=== PATIENT | female | born 1960 | race Caucasian/White ===

== ENCOUNTER → 2019-04-05 15:50 | Outpatient (BNVA) | payer OTHER, SELFPAY | PROVIDERS: Family Provider Family Medicine; Referring Provider Nurse Practitioner Women's Health; Visit Provider Obstetrics & Gynecology | DX: Z01.89 Encounter for other specified special examinations (principal) | CPT/HCPCS: 36415; 82306 ==

== ENCOUNTER → 2019-06-06 16:19 | Outpatient (BNVA) | payer OTHER, SELFPAY | PROVIDERS: Family Provider Family Medicine; Referring Provider Nurse Practitioner Women's Health; Visit Provider Nurse Practitioner Women's Health | DX: R79.89 Other specified abnormal findings of blood chemistry (principal) | CPT/HCPCS: 82306 ==

== ENCOUNTER 2020-06-05 16:09 | Outpatient (CLI) | payer OTHER, SELFPAY ==
--- NOTE | 2020-06-05 16:17 | CT_ITS ---
WS: [id number] CT CHEST WITHOUT INTRAVENOUS CONTRAST HISTORY: COUGH TECHNIQUE: Contiguous 5 mm axial imaging performed on the thorax. Coronal and sagittal reformats are submitted. All CT scans at [facility] use at least one of these dose optimization techniq ues: automated exposure control; mA and/or kV adjustment per patient size (includes targeted exams wh ere dose is matched to clinical indication); or iterative reconstruction. CONTRAST: None DLP: 917.09 mGycm COMPARISON: 07/14/2018 Lungs and central airway: Lungs are well-aerated. There is mild interstitial thickening bilaterally w ithin the periphery. Very similar to the prior examination from 2019. Stable 3 mm nodule in the LEFT upper lobe. No new nodules or increasing size of nodules. Pleura: Normal. No pleural effusion. Heart and pericardium: Normal size heart with no pericardial effusion. Mediastinum and ana: No mediastinum or hilar adenopathy. Vessels: Normal size aortic and pulmonary artery. No coronary artery calcifications. Chest wall and lower neck: No soft tissue masses. Upper abdomen: Prior cholecystectomy. No adrenal mass. Osseous structures: No destructive process. CT/CT chest wo con [id number] IMPRESSION: 1. Mild peripheral interstitial thickening. Differential includes mild pneumon itis and respiratory bronchiolitis. Chronic emphysema also within the different ial. No pneumonia. 2. Long-term stability 3 mm nodule LEFT upper lobe.
== END 2020-06-05 16:10 | disposition home or self-care (01) ==
LOC: RADWPI 16:13
PROVIDERS: PCP Family Medicine; Visit Provider Physician Assistant
DX: R05 Cough (principal); J18.9 Pneumonia, unspecified organism; R91.1 Solitary pulmonary nodule
CPT/HCPCS: 71250

== ENCOUNTER 2020-08-09 15:14 | Outpatient (CLI) | payer OTHER, SELFPAY ==
--- NOTE | 2020-08-09 15:18 | MM_ITS ---
WS: [id number] BILATERAL SCREENING DIGITAL MAMMOGRAM WITH CAD HISTORY: SCREENING COMPARISON: 02/21/2019 and 11/04/2016 Bilateral CC and MLO views submitted. Computer aided detection analyzed. Breast composition: The breasts are heterogeneously dense, which may obscure small masses. No suspici ous masses, microcalcifications or architectural distortion. Benign calcifications in each breast. MM/[place] [id number] IMPRESSION: BI-RADS: 2-Benign FOLLOW UP: 1 Year Follow-up
== END 2020-08-09 15:15 | disposition home or self-care (01) ==
LOC: RADSHAW 15:16
PROVIDERS: PCP Family Medicine; Visit Provider Family Medicine
DX: Z12.31 Encounter for screening mammogram for malignant neoplasm of breast (principal)
CPT/HCPCS: 77067

== ENCOUNTER 2020-11-15 08:20 | Outpatient (CLI) | payer OTHER, SELFPAY ==
--- NOTE | 2020-11-15 08:34 | US_ITS ---
WS: [id number] THYROID ULTRASOUND HISTORY: HX OF THYROID CANCER/POSTSURGICAL HYPOTHYROIDISM COMPARISON: 11/19/2012. Status post complete thyroidectomy. No recurrent mass at the thyroid bed. Submandibular glands are both imaged and normal. Benign bilateral cervical chain lymph nodes. These lymph nodes maintain normal fatty hilum. No cortic al thickening. Central vascularity. US/US thyroid 79426 IMPRESSION: 1. Complete thyroidectomy. No recurrent mass at the thyroid bed. 2. Benign bilateral cervical chain lymph nodes.
== END 2020-11-15 08:21 | disposition home or self-care (01) ==
LOC: RAD 08:23
PROVIDERS: PCP Family Medicine; Visit Provider Internal Medicine Endocrinology, Diabetes & Metabolism
DX: Z85.850 Personal history of malignant neoplasm of thyroid (principal); E89.0 Postprocedural hypothyroidism
CPT/HCPCS: 76536

== ENCOUNTER 2020-12-17 12:00 | Outpatient (CLI) | payer OTHER, SELFPAY | END 2020-12-17 12:01 | disposition home or self-care (01) | LOC: SLEEP 12-19 08:32 | PROVIDERS: PCP Family Medicine; Visit Provider Family Medicine | DX: G47.10 Hypersomnia, unspecified (principal) | CPT/HCPCS: G0399 ==

== ENCOUNTER 2021-04-05 12:57 | Outpatient (CLI) | payer OTHER, SELFPAY ==
[2021-04-05 13:34] VITALS: BP 134/86; PULSE 83; RESP 22; TEMP 36.8; O2SAT 94; BMI 30.2
[2021-04-05 13:50] VITALS: BP 129/78; PULSE 78; RESP 16; TEMP 36.8; O2SAT 93
[2021-04-05 14:49] VITALS: BP 157/81; PULSE 82; RESP 18; TEMP 36.7; O2SAT 94
== END 2021-04-05 12:58 | disposition home or self-care (01) ==
PROVIDERS: PCP Family Medicine; Visit Provider Nurse Practitioner
DX: U07.1 COVID-19 (principal)
CPT/HCPCS: 96365

== ENCOUNTER 2021-06-20 15:38 | Outpatient (CLI) | payer OTHER, SELFPAY ==
--- NOTE | 2021-06-20 16:25 | XR_ITS ---
WS: [email or web address] Cervical spine, 7 views, AP, AP odontoid, both obliques, lateral in flexion, extension and neutral po sition, 06/20/2021 Clinical Data: CERVICAL RADICULOPATHY Comparison: None. Findings: No compression fractures are seen. The disc heights are normal. There is no prevertebral so ft tissue swelling. The odontoid is unremarkable. On flexion and extension there is no limitation of motion or subluxation. The oblique films show no foraminal narrowing. The soft tissues of the neck an d the lung apices are normal. XR/XR cervical spine min 6V [id number] Impression: 1. Negative cervical spine. 2. Negative oblique images. 3. Negative for limitation of motion or subluxation on flexion or extension.
== END 2021-06-20 15:39 | disposition home or self-care (01) ==
PROVIDERS: PCP Family Medicine; Visit Provider Family Medicine
DX: M54.12 Radiculopathy, cervical region (principal)
CPT/HCPCS: 72052

== ENCOUNTER 2021-08-09 08:28 | Outpatient (CLI) | payer OTHER, SELFPAY ==
--- NOTE | 2021-08-09 08:45 | MR_ITS ---
WS: [id number] MRI CERVICAL SPINE NONCONTRAST AND CONTRAST TECHNIQUE: Sagittal T1, T2 and STIR imaging. Axial T2, gradient, and fiesta imaging. CLINICAL INFORMATION: M47.22 - Other spondylosis with radiculopathy, cervical r... COMPARISON: None. FINDINGS: Straightening of the normal cervical lordosis. Mild cervical curve. No high-grade central canal steno sis. Cord signal is normal. C2-C3: No significant disc bulging. Spinal canal and foramen are patent. C3-C4: Mild disc bulging with osteophytic ridging. Moderate LEFT and no significant RIGHT foraminal n arrowing. Mild facet arthropathy. Mild central canal stenosis. C4-C5: Mild disc bulging with a tiny shallow central protrusion. Mild central canal stenosis. Slight contact of the cervical cord. Mild RIGHT greater than LEFT bony foraminal narrowing. Moderate facet a rthropathy. C5-C6: Mild disc bulging and osteophytic ridging. Moderate facet arthropathy. Mild RIGHT greater than LEFT bony foraminal narrowing. C6-C7: Minimal central disc bulging. Spinal canal and foramen are patent. C7-T1: Incidental perineural cysts. Mild LEFT bony foraminal narrowing. RIGHT foramen is patent. Additional incidental perineural sleeve cysts in the upper thoracic spine are visualized. No abnormal gadolinium enhancement. Visualized brain stem structures: Normal. Prevertebral soft tissues: Normal. MR/MR cervical spine wo/w [id number] IMPRESSION: 1. Straightening of the normal cervical lordosis. Mild cervical curve. Cord si gnal is normal. 2. Mild central canal stenosis C3-C4, C4-C5,. This is worse at C4-C5 with a sh allow central disc protrusion with slight contact of the cervical cord. 3. Moderate LEFT C3-C4 bony foraminal narrowing. 4. Otherwise mild bony foraminal narrowing more prominent at RIGHT C4-C5 and R IGHT C5-C6. 5. Moderate facet arthropathy worse at C4-C5 and C5-C6. 6. Multiple nonenhancing perineural sleeve cysts visualized in the neural fora men at C7-T1 and upper thoracic spine. 7. No abnormal gadolinium enhancement.
[2021-08-09] MEDS: gadobenate dimeglumine 20 mL vial IV (09:54)
== END 2021-08-09 08:29 | disposition home or self-care (01) ==
PROVIDERS: PCP Family Medicine; Visit Provider Anesthesiology Pain Medicine
DX: M47.22 Other spondylosis with radiculopathy, cervical region (principal); M48.02 Spinal stenosis, cervical region; G96.191 Perineural cyst
CPT/HCPCS: 72156

== ENCOUNTER → 2022-06-16 16:13 | Outpatient (BNVA) | payer OTHER, SELFPAY | PROVIDERS: PCP Family Medicine; Visit Provider Family Medicine | DX: E03.9 Hypothyroidism, unspecified (principal); Z51.81 Encounter for therapeutic drug level monitoring; E53.8 Deficiency of other specified B group vitamins; K14.6 Glossodynia; Z85.850 Personal history of malignant neoplasm of thyroid; Z86.010 Personal history of colon polyps | CPT/HCPCS: 80053; 82607; 83550; 83735; 84439; 84443; 85025 ==

== ENCOUNTER 2022-09-17 06:29 | Day surgery (SDC) | payer OTHER, SELFPAY ==
[2022-09-16 08:52] VITALS: BMI 30.9
[2022-09-17 06:40] VITALS: BP 159/96; PULSE 84; RESP 17; TEMP 36.1; O2SAT 94
[2022-09-17] MEDS: sodium chloride 0.9% 1,000 ML 30 ML IV (06:46)
--- NOTE | 2022-09-17 06:53 | P.ANESASSM_ITS ---
Pre-Anesthetic Assessment Height/Weight: Height 1.69 m Weight 88.451 kg Temp Pulse Resp BP Pulse Ox O2 Del Method 97.0 F L 84 17 159/96 94 Room Air 09/17/22 06:40 09/17/22 06:40 09/17/22 06:40 09/17/22 06:40 09/17/22 06:40 09/17/22 06:40 Preop Diagnosis: screening Operation Date: 09/17/22 07:30 Pro[place] Procedures p 97691 egd 34516 colon K52.9 , K21.9,Z86.010(Not Applicable) - DO nanda Aragon Colonoscopy(Not Applicable) - Denis Dennis DO Familial anesthetic complications: none Was Beta Magda taken within 24 hours: Yes Was Clonidine taken within 24 hours: N/A Last intake: Intake Last Liquid Date 09/16/22 Last Liquid Time 23:15 Last Solid Date 09/15/22 Last Solid Time 21:00 Last Intake: 23:15 Social No alcohol and No tobacco Exam alert, oriented x 3, clear to auscultation bilaterally and regular rate & rhythm Airway Submandibular: within normal limits Cervical ROM: within normal limits Mallampati: Class II Dentition: full Pulmonary None reported CV/HEM Hypertension None reported Hepatic None reported GI Gastroesophageal Reflux Disease Metabolic Thyroid Disease (thyroidectomy) [facility] [place] None reported Neuropsych None reported Anesthetic Plan ASA status: 2 Anesthesia: MAC Risk of > 500 ml blood loss (7ml/kg in children): No Medications/Allergies Home Medications Medication Instructions Recorded Confirmed Last Taken Type calcium [calcium citrate] 2.5 cap PO DAILY 04/05/19 09/17/22 09/16/22 History cetirizine 10 mg capsule (Zyrtec) 10 mg PO DAILY 04/05/19 09/17/22 09/16/22 History metoprolol succinate 100 mg PO DAILY 04/05/19 09/17/22 09/17/22 History cholecalciferol (vitamin D3) 50 2,000 unit PO DAILY #30 tabs 06/10/19 09/17/22 09/16/22 Rx mcg (2,000 unit) tablet levothyroxine 125 mcg tablet 125 mcg PO DAILY 06/16/22 09/17/22 09/17/22 History hydrochlorothiazide 12.5 mg tablet 12.5 mg PO DAILY #90 tabs 06/23/22 09/17/22 09/16/22 Rx pantoprazole 40 mg tablet,delayed 40 mg PO BID 6 weeks #84 tabs 09/03/22 09/17/22 09/16/22 Rx release (Protonix) montelukast 10 mg tablet 10 mg PO DAILY PRN Shortness Of 09/16/22 09/17/22 Unknown History Breath sertraline 50 mg tablet 50 mg PO DAILY 09/17/22 09/17/22 09/16/22 History Allergies Allergy/AdvReac Type Severity Reaction Status Date / Time codeine Allergy Trouble Verified 09/17/22 06:37 breathing Current Medications Generic Name Dose Route Start Last Admin Trade Name Freq PRN Reason Stop Dose Admin Sodium Chloride 1,000 mls @ 30 mls/hr 09/17/22 06:45 09/17/22 06:46 Sodium Chloride 0.9% IV 09/18/22 06:44 30 mls/hr .Q24H STACIE Administration PFSH Anesthesia Medical History Colon polyp Environmental allergies Gallbladder attack Hypertension Post hysterectomy menopause Thyroid cancer Surgical History History of cholecystectomy History of hysterectomy Bilateral ovaries in place History of partial colectomy History of thyroidectomy Hx of colonoscopy with polypectomy 2020 Family History Father Cancer colon Other CAD (coronary artery disease) Diabetes Hypertension Social History Smoking and tobacco status: never smoked Data Anesthesia Cardiac Studies: No Data to Display
--- NOTE | 2022-09-17 07:41 | W.PM.OPSUD ---
Surgery/Procedure H&P Update DATE OF PROCEDURE: September 17, 2022 DATE H&P PERFORMED: 09/03/22 H&P UPDATE INFORMATION: I have reviewed H&P completed within last 30 days, I have examined patient prior to procedure and No changes to prior documentation PREOP DIAGNOSIS: screening PLANNED PROCEDURE: Operation Date: 09/17/22 07:30 Proposed Procedures p 00209 egd 22760 colon K52.9 , K21.9,Z86.010(Not Applicable) - DO nanda Aragon Colonoscopy(Not Applicable) - Denis Dennis DO
[2022-09-17 08:14] VITALS: BP 129/80; PULSE 81; RESP 16; TEMP 36.1; O2SAT 97
[2022-09-17 08:24] VITALS: BP 124/74; PULSE 70; RESP 16; O2SAT 94
[2022-09-17 08:40] VITALS: BP 151/89; PULSE 68; RESP 16; O2SAT 95
--- NOTE | 2022-09-17 14:02 | ANE.PACU2 ---
Inpatient post-anesthesia follow up: Airway intact: Yes Vital signs: Temperature 97 F Pulse Rate 68 Respiratory Rate 16 Blood Pressure 151/89 Pulse Oximetry 95 Oxygen Delivery Me thod Room Air Oxygen Flow Rate Fraction of Inspir ed Oxygen Hydration adequate: Yes Nausea and vomiting: No Pain level: 2 Mental status: Baseline
== END 2022-09-17 09:05 | disposition home or self-care (01) ==
PROVIDERS: PCP Family Medicine; Visit Provider Surgery
PROC: 0DJ08ZZ Inspection of Upper Intestinal Tract, Via Natural or Artificial Opening Endoscopic (ICD-10-PCS; CPT 43235; principal; 2022-09-17 07:30)
PROC: 0DJD8ZZ Inspection of Lower Intestinal Tract, Via Natural or Artificial Opening Endoscopic (ICD-10-PCS; CPT 45378; 2022-09-17 07:30)
DX: K52.9 Noninfective gastroenteritis and colitis, unspecified (principal); K29.70 Gastritis, unspecified, without bleeding; K31.811 Angiodysplasia of stomach and duodenum with bleeding; K21.9 Gastro-esophageal reflux disease without esophagitis; K31.89 Other diseases of stomach and duodenum; I10 Essential (primary) hypertension; E89.0 Postprocedural hypothyroidism; Z86.010 Personal history of colon polyps; Z80.0 Family history of malignant neoplasm of digestive organs; Z90.49 Acquired absence of other specified parts of digestive tract
CPT/HCPCS: 43239; 45380; 82274; 83630; 87493; 87506; 88305; J2704; J7030

== ENCOUNTER 2022-09-22 10:30 | Outpatient (CLI) | payer OTHER, SELFPAY ==
--- NOTE | 2022-09-22 10:35 | MM_ITS ---
WS: [email or web address] VIEWS: MLO and CC views both breasts. 3D digital tomosynthesis is also included in this exam. Comparison made with prior exam of 02/06/2012, 10/08/2015, 11/04/2016, 02/21/2019, 08/09/2020. Findings: There was no sign of mass, architectural distortion or suspicious calcification in either breast. Th e breasts are heterogeneously dense, which may obscure small masses MM/[place] [id number] Impression: BI-RADS: 2-Benign finding. FOLLOW-UP: 1 Year Follow-up This mammogram was also analyzed by the Computer Aided Detection System R2 Imag e Full Fashioned Garment Knitter.
== END 2022-09-22 10:31 | disposition home or self-care (01) ==
PROVIDERS: PCP Family Medicine; Visit Provider Family Medicine
DX: Z12.31 Encounter for screening mammogram for malignant neoplasm of breast (principal)
CPT/HCPCS: 77063; 77067

== ENCOUNTER → 2022-09-25 12:05 | Outpatient (BNVA) | payer OTHER, SELFPAY | PROVIDERS: PCP Family Medicine; Referring Provider Surgery; Visit Provider Nurse Practitioner Women's Health | DX: E55.9 Vitamin D deficiency, unspecified (principal); N89.8 Other specified noninflammatory disorders of vagina; Z01.419 Encounter for gynecological examination (general) (routine) without abnormal findings; N93.9 Abnormal uterine and vaginal bleeding, unspecified | CPT/HCPCS: 82306 ==

== ENCOUNTER 2023-01-22 08:41 | Emergency (ER) | payer OTHER, SELFPAY ==
[2023-01-22 08:50] VITALS: BP 183/96; PULSE 66; RESP 16; TEMP 36.8; O2SAT 95
--- NOTE | 2023-01-22 08:56 | ECG_ITS ---
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 Measurements Intervals [place] Rate: 63 P: 59 ME: 208 QRS: 24 QRSD: 115 T: 54 QT: 399 QTc: 410 Interpretive Statements SINUS RHYTHM MODERATE INTRAVENTRICULAR CONDUCTION DELAY [110+ ms QRS DURATION] No previous ECG available for comparison Electronically Signed On 01-22-2023 11:31:03 CDT by Mary Allen M.D. [email or web address] [email or web address]/[id number] f
--- NOTE | 2023-01-22 09:02 | XR_ITS ---
WS: [id number] Exam: XR chest 1V portable [id number] Date/Time of Exam: 01/22/2023 9:21 AM Reason For Exam: dyspnea/cough Comparison 07/01/2018. Findings: The lungs are clear and fully expanded. Costophrenic angles are sharp. No infiltrates. Bronchovascula r relief appears normal. Cardiac silhouette is unremarkable. Bony elements are intact. IMPRESSION: Unremarkable chest radiograph.
--- NOTE | 2023-01-22 09:16 | ED_ITS ---
HPI - SOB/Dyspnea General: Chief Complaint: Shortness of Breath/Dyspnea Stated Complaint: sob high bp Time Seen by Provider: 01/22/23 09:01 Source: patient Mode of arrival: ambulatory History of Present Illness: HPI Narrative: 62 yo male presents to the ER with complaints of shortness of breath and eleva khushbu blood pressure. She is not having any chest discomfort at this time. She has a history of thyroid cancer and is on thyroid supplement 4 to 6 weeks ago her Synthroid is increased after a low TSH she went from 124 mcg to 137 mcg. No known history of coronary artery disease. She had mild chest discomfort this morning MD elicited complaint: shortness of breath Onset (ago): hour(s) Severity: mild Exacerbating factors: nothing Relieving factors: nothing Associated symptoms: Deny abdominal pain, chest congestion, chest pain, cough, diaphoresis, dizziness, extremity pain, fever(s), hemoptysis, lightheadedness, myalgias, nausea, orthopnea, palpitations, paresthesias, polydipsia, polyuria, rash, sense of impending doom, syncope or vomiting Treatment prior to arrival: none Review of Systems Const: Denies: fever(s), chills or diaphoresis Card: Denies: chest pain, palpitations, lightheadedness, syncope or orthopnea Resp: Reports: dyspnea; Denies: hemoptysis or chest congestion GI: Denies: abdominal pain, nausea or vomiting : Denies: dysuria, urinary frequency or urinary urgency Musc: Denies: extremity pain Skin/Breast: Denies: rash Neuro: Denies: dizziness Endo: Denies: polyuria or polydipsia PFSH ED PFSH: Medical History Colon polyp Environmental allergies Gallbladder attack Hypertension No pertinent past medical history neghx: dm, dvt/pe PCP: Dr. Tran Post hysterectomy menopause Thyroid cancer Surgical History History of cholecystectomy History of hysterectomy Bilateral ovaries in place History of partial colectomy History of thyroidectomy Hx of colonoscopy with polypectomy 2020 Family History Father Hypertension Mother Hypertension Heart disease Diabetes Grandfather Stroke Grandmother Stroke Other Breast cancer CAD (coronary artery disease) Colon cancer Ovarian cancer Uterine cancer Social History Smoking and tobacco/nicotine status: never used tobacco/nicotine Physical Exam Const: COMMON NORMALS: no acute distress GENERAL APPEARANCE: cooperative and comfortable ORIENTATION/CONSCIOUSNESS: Yes awake, Yes oriented to person, Yes oriented to place and Yes oriented to time HENMT: COMMON NORMALS: normocephalic, atraumatic and hearing grossly normal bilaterally HEAD & SCALP: normocephalic and atraumatic Resp: COMMON NORMALS: normal respiratory effort, No retractions, No use of accessory muscles and clear to auscultation bilaterally AUSCULTATION: clear to auscultation bilaterally Cardio: COMMON NORMALS: regular rate, regular rhythm and No murmurs present (Cardio) RATE: regular rate RHYTHM: regular rhythm GI: COMMON NORMALS: Soft to palpation and No hepatosplenomegaly present AUSCULTATION: Yes normoactive bowel sounds PALPATION: Yes Soft to palpation, No Tenderness to palpation present (GI), No Guarding due to palpation present (GI) and Yes No hepatosplenomegaly present Extremity: COMMON NORMALS: normal to inspection, capillary refill normal, no clubbing, cyanosis or edema, no calf tenderness and no pedal edema Neuro: SENSORIUM/ORIENTATION: Yes oriented to person, Yes oriented to place and Yes oriented to time Skin: COMMON NORMALS: no rashes or lesions noted GENERAL SKIN EXAM: no rashes or lesions noted Course Vital Signs: Vital signs: Vital Signs Temperature 98.3 F 01/22/23 08:50 Pulse Rate 66 01/22/23 08:50 Respiratory Rate 16 01/22/23 08:50 Blood Pressure 170/93 01/22/23 10:14 Pulse Oximetry 95 01/22/23 08:50 Oxygen Delivery Me thod Room Air 01/22/23 08:50 MDM - SOB/Dyspnea Medical Decision Making Elevated blood pressure laboratory tests unremarkable. Blood pressure is already started to improve spontaneously we will start amlodipine 5 mg daily. She is not tachycardic and no believe this is related to her Synthroid she only had a very small increase percentagewise earlier this year and should be rechecked again encouraged her to follow-up with her doctor to reevaluate blood pressure and thyroid as an outpatient return if has further problems. Medical Records I reviewed the patient's medical records. Lab Data I reviewed the patient's lab results. 01/22/23 09:12 01/22/23 09:12 Labs/Radiology: Laboratory Results WBC 8.25 10^3/uL (3.29-11.43) 01/22/23 09:12 RBC 5.26 10^6/uL (3.85-5.65) 01/22/23 09:12 Hgb 14.60 g/dL (11.27-16.99) 01/22/23 09:12 Hct 45.0 % (36-47) 01/22/23 09:12 MCV 85.6 fl (85-98) 01/22/23 09:12 MCH 27.8 pg (27-33) 01/22/23 09:12 MCHC 32.4 g/dL (30-55) 01/22/23 09:12 RDW 12.7 % (12.1-15.1) 01/22/23 09:12 Plt Count 238 10^3/cmm (157-399) 01/22/23 09:12 MPV 10.5 fL (7.4-10.4) H 01/22/23 09:12 Neut % (Auto) 64.0 % 01/22/23 09:12 Lymph % (Auto) 26.9 % 01/22/23 09:12 [place] % (Auto) 6.3 % 01/22/23 09:12 Eos % (Auto) 1.7 % 01/22/23 09:12 Baso % (Auto) 0.6 % 01/22/23 09:12 Neut # (Auto) 5.28 10^3/uL (1.8-7.7) 01/22/23 09:12 Lymph # (Auto) 2.2 10^3/uL (0.8-4.8) 01/22/23 09:12 [place] # (Auto) 0.5 10^3/uL (0.2-0.9) 01/22/23 09:12 Eos # (Auto) 0.1 10^3/uL (0.0-0.8) 01/22/23 09:12 Baso # (Auto) 0.1 10^3/uL (0.0-0.1) 01/22/23 09:12 Nucleated RBC % (auto) 0 % 01/22/23 09:12 Nucleated RBCs # 0.0 /100WBC 01/22/23 09:12 Sodium 140 mmol/L (136-145) 01/22/23 09:12 Potassium 3.4 mmol/L (3.5-5.1) L 01/22/23 09:12 Chloride 103 mmol/L (98-107) 01/22/23 09:12 Carbon Dioxide 28 mmol/L (22-29) 01/22/23 09:12 Anion Gap 12.4 (5-19) 01/22/23 09:12 BUN 15 mg/dL (8-23) 01/22/23 09:12 Creatinine 0.7 mg/dL (0.5-0.9) 01/22/23 09:12 GFR Calculation 85.4 mL/min (90-130) L 01/22/23 09:12 Glucose 111 mg/dL (65-115) 01/22/23 09:12 Calculated Osmolality 292 mOsm/kg (285-295) 01/22/23 09:12 Calcium 9.6 mg/dL (8.5-10.5) 01/22/23 09:12 Total Bilirubin 0.4 mg/dL (0.15-1.2) 01/22/23 09:12 AST 27 U/L (0-32) 01/22/23 09:12 ALT 33 U/L (0-33) 01/22/23 09:12 Alkaline Phosphatase 55 U/L (35-105) 01/22/23 09:12 Total Protein 7.1 g/dL (6.6-8.7) 01/22/23 09:12 Albumin 4.3 g/dL (3.5-5.2) 01/22/23 09:12 Globulin 2.8 g/dL (1.3-4.6) 01/22/23 09:12 All radiology interpretation(s) finalized by discharge Discharge Plan Discharge Patient Disposition: Home Clinical Impression: HTN (hypertension) Condition: Stable Prescriptions: New amlodipine 5 mg tablet 5 mg PO DAILY Qty: 30 0RF No Action Zyrtec 10 mg capsule 10 mg PO DAILY levothyroxine 125 mcg tablet 137 mcg PO DAILY estradiol [Estrace] 0.01 % (0.1 mg/gram) cream 1 g vaginal .twice weekly Qty: 42.5 1RF Rx Instructions: space out doses cholecalciferol (vitamin D3) 2,000 unit tablet 2,000 unit PO DAILY Qty: 30 11RF hydrochlorothiazide 12.5 mg tablet 12.5 mg PO DAILY Qty: 90 3RF sertraline 50 mg tablet 50 mg PO DAILY Qty: 90 3RF pantoprazole [Protonix] 40 mg tablet,delayed release (DR/EC) 40 mg PO BID 180 Days Qty: 360 0RF calcium citrate 200 mg (950 mg) Tablet 500 mg PO DAILY metoprolol succinate 100 mg tablet extended release 24 hr 100 mg PO DAILY montelukast 10 mg tablet 10 mg PO BEDTIME PRN (Reason: Allergy Symptoms) Discharge Orders: Discharge ED (Routine); Ordered 01/22/23 Ordered By: Sang Hill Referrals: Jordy Tran MD [Primary Care Provider] - Discharge Diet: Usual diet Discharge Activity: Resume usual activity Patient Instructions: Opioid Safety, Pain Management Activity Restrictions/Additional Instructions: Follow-up with your doctor within the next week to reevaluate your blood pressure Coding Level of Care Code ED Concrete Panel Installer for Luis Ascencio
[2023-01-22 09:21] LABS: Basophils # 0.1 10^3/uL (0.0-0.1); Basophils % 0.6 %; Eosinophils # 0.1 10^3/uL (0.0-0.8); Eosinophils % 1.7 %; Lymphocytes # 2.2 10^3/uL (0.8-4.8); Lymphocytes % 26.9 %; Mean Corpuscular HGB Conc 32.4 g/dL (30-55); Mean Corpuscular Hemoglobin 27.8 pg (27-33); Mean Corpuscular Volume 85.6 fl (85-98); Mean Platelet Volume 10.5 fL (7.4-10.4); Monocytes # 0.5 10^3/uL (0.2-0.9); Monocytes % 6.3 %; Neutrophils # 5.28 10^3/uL (1.8-7.7); Nucleated Red Blood Cells % 0 %; Platelet Count 238 10^3/cmm (157-399); Red Blood Count 5.26 10^6/uL (3.85-5.65); Red Cell Distribution Width 12.7 % (12.1-15.1); White Blood Count 8.25 10^3/uL (3.29-11.43)
[2023-01-22 09:38] LABS: Alanine Aminotransferase 33 U/L (0-33); Albumin Level 4.3 g/dL (3.5-5.2); Alkaline Phosphatase 55 U/L (35-105); Anion Gap 12.4 (5-19); Aspartate Amino Transferase 27 U/L (0-32); Blood Urea Nitrogen 15 mg/dL (8-23); Calcium 9.6 mg/dL (8.5-10.5); Carbon Dioxide 28 mmol/L (22-29); Chloride 103 mmol/L (98-107); Globulin 2.8 g/dL (1.3-4.6); Glomerular Filtration Rate 85.4 mL/min (90-130); Glucose 111 mg/dL (65-115); Osmolality Calculated 292 mOsm/kg (285-295); Potassium 3.4 mmol/L (3.5-5.1); Sodium 140 mmol/L (136-145); Total Bilirubin 0.4 mg/dL (0.15-1.2); Total Protein 7.1 g/dL (6.6-8.7)
[2023-01-22 10:14] VITALS: BP 170/93
[2023-01-22] MEDS: amlodipine 5 mg Tablet PO (10:38)
== END 2023-01-22 10:53 | disposition home or self-care (01) ==
PROVIDERS: Emergency Provider Family Medicine; PCP Family Medicine
DX: I10 Essential (primary) hypertension (principal); Z85.850 Personal history of malignant neoplasm of thyroid
CPT/HCPCS: 71045; 80053; 85025; 93005; 99285

== ENCOUNTER → 2023-06-21 12:26 | Outpatient (BNVA) | payer OTHER, SELFPAY | PROVIDERS: PCP Family Medicine; Visit Provider Nurse Practitioner | DX: R09.81 Nasal congestion; J02.0 Streptococcal pharyngitis | CPT/HCPCS: 87400; 87880 ==

== ENCOUNTER 2023-09-25 15:43 | Outpatient (CLI) | payer OTHER, SELFPAY ==
--- NOTE | 2023-09-25 15:52 | XRR_ITS ---
PROCEDURE INFORMATION: Exam: XR Chest Exam date and time: 09/25/2023 3:58 PM Age: 62 years old Clinical indication: Pre-operative exam; Cardiovascular screening and respiratory screening exam; Patient HX: HX of thyroid cancer TECHNIQUE: Imaging protocol: Radiologic exam of the chest. Views: 2 views. COMPARISON: CR XR chest 1V portable [id number] 01/22/2023 9:13 AM FINDINGS: Lungs: Unremarkable. No consolidation. Pleural spaces: Unremarkable. No pleural effusion. No pneumothorax. Heart/Mediastinum: Unremarkable. No cardiomegaly. Bones/joints: Ricn-en-fygvjnbs multilevel degenerative endplate spurring in the thoracic spine. Slight S shaped scoliosis of the thoracolumbar spine. Organs: Cholecystectomy clips in the right upper quadrant. Midline XR/XR chest 2V* [id number] IMPRESSION: No clear-cut acute plain radiographic cardiopulmonary abnormality or interval change from 01/22/2023.
== END 2023-09-25 15:44 | disposition home or self-care (01) ==
LOC: RAD 15:46
PROVIDERS: PCP Family Medicine; Visit Provider Nurse Practitioner Women's Health
DX: N64.89 Other specified disorders of breast (principal); Z01.818 Encounter for other preprocedural examination; M54.2 Cervicalgia; M25.78 Osteophyte, vertebrae; Z90.49 Acquired absence of other specified parts of digestive tract
CPT/HCPCS: 71046

== ENCOUNTER 2023-12-31 16:33 | Outpatient (CLI) | payer OTHER, SELFPAY ==
--- NOTE | 2023-12-31 16:46 | XR_ITS ---
WS: [email or web address] Exam: XR thoracic spine 2V [id number] Date/Time of Exam: 12/31/2023 4:54 PM Reason For Exam: N64.89 - Other specified disorders of breast Comparison 01/06/2017. No fracture or dislocation. Bridging osteophytes at multiple levels. Normal paraspinal soft tissues. No significant scoliosis. IMPRESSION1. Spondylosis. No fracture or malalignment.
--- NOTE | 2023-12-31 16:46 | XR_ITS ---
WS: [email or web address] Exam: XR cervical spine 3V* [id number] Date/Time of Exam: 12/31/2023 4:54 PM Reason For Exam: N64.89 - Other specified disorders of breast No fracture or dislocation. Disc spaces are preserved. Mild facet DJD. Normal paraspinal soft tissues . The odontoid is intact. XR/XR cervical spine 3V* [id number] IMPRESSION: 1. Mild facet DJD otherwise normal cervical spine study.
== END 2023-12-31 16:34 | disposition home or self-care (01) ==
LOC: RAD 16:35
PROVIDERS: PCP Family Medicine; Visit Provider Nurse Practitioner Women's Health
DX: M47.814 Spondylosis without myelopathy or radiculopathy, thoracic region (principal); M25.78 Osteophyte, vertebrae; N64.89 Other specified disorders of breast
CPT/HCPCS: 72040; 72070

== ENCOUNTER 2024-05-03 15:52 | Outpatient (CLI) | payer BC, OTHER, SELFPAY ==
--- NOTE | 2024-05-03 15:59 | XRR_ITS ---
PROCEDURE INFORMATION: Exam: XR Chest Exam date and time: 05/03/2024 4:20 PM Age: 63 years old Clinical indication: Cough and shortness of breath; Prior surgery; Surgery date: 6+ months; HX of thyroid cancer, chronic cough x yrs, difficulty swallowing and SOB; Additional info: Dysphagia TECHNIQUE: Imaging protocol: Radiologic exam of the chest. Views: 2 views. COMPARISON: CR XR chest 2V* [id number] 09/25/2023 3:58 PM FINDINGS: Lungs: Unremarkable. No consolidation. Pleural spaces: Unremarkable. No pleural effusion. No pneumothorax. Heart/Mediastinum: Unremarkable. No cardiomegaly. Bones/joints: Degenerative changes of the thoracic spine. Organs: Cholecystectomy clips. XR/XR chest 2V* [id number] IMPRESSION: No acute findings.
== END 2024-05-03 15:53 | disposition home or self-care (01) ==
LOC: RAD 15:54
PROVIDERS: PCP Family Medicine; Visit Provider Specialist
DX: C73 Malignant neoplasm of thyroid gland (principal); Z85.850 Personal history of malignant neoplasm of thyroid; M47.894 Other spondylosis, thoracic region; Z90.49 Acquired absence of other specified parts of digestive tract
CPT/HCPCS: 71046

== ENCOUNTER → 2024-05-09 16:53 | Outpatient (BNVA) | payer OTHER, SELFPAY | PROVIDERS: PCP Family Medicine | DX: J02.9 Acute pharyngitis, unspecified (principal) | CPT/HCPCS: 87071; 87880 ==

== ENCOUNTER 2024-05-27 08:51 | Outpatient (CLI) | payer OTHER, SELFPAY ==
--- NOTE | 2024-05-27 08:56 | FL_ITS ---
WS: [email or web address] Barium swallow and esophagram, 05/27/2024 Clinical Data: DYSPHAGIA Comparison: None. Fluoroscopy time: 1min [id number] # of spot films: 20 Findings: The patient swallowed the thick and thin barium, and it flowed through the hypopharynx without hesitation. No stricture, mass, polyp or erosion was seen. No aspiration or penetration occurred. The barium entered the esophagus and there was normal motility throughout. No stricture, polyp, mass, erosion or ulcer was noted. No reflux was present. There is a small reducible hiatal hernia. FL/FL barium swallow [id number] Impression: Small hiatal hernia.
== END 2024-05-27 08:52 | disposition home or self-care (01) ==
PROVIDERS: PCP Family Medicine; Visit Provider Specialist
DX: R05.3 Chronic cough (principal); K44.9 Diaphragmatic hernia without obstruction or gangrene
CPT/HCPCS: 74220

== ENCOUNTER 2024-06-01 06:56 | Outpatient (CLI) | payer OTHER, SELFPAY | END 2024-06-01 06:57 | disposition home or self-care (01) | LOC: RT 06:58 | PROVIDERS: PCP Family Medicine; Visit Provider Specialist | DX: R05.3 Chronic cough (principal) | CPT/HCPCS: 94010 ==

== ENCOUNTER 2024-06-24 12:02 | Outpatient (CLI) | payer OTHER, SELFPAY ==
--- NOTE | 2024-06-24 12:13 | CT_ITS ---
WS: [email or web address] CT NECK TECHNIQUE: Contrast-enhanced CT of the neck with coronal and sagittal reformatted images. CLINICAL INFORMATION: DYSPHAGIA COMPARISON: None. DLP: 284.[address] scans at [facility] use at least one of these dose optimization techniques: automated exposure control; mA and/or kV adjustment per patient size (includes targeted exams where dose is matched to clinical indication); or iterative reconstruction. FINDINGS: Some images the tongue base degraded due to extensive dental artifact Markedly enlarged [place] tonsils with prominent enhancing mucosal tissue at the tongue base RIGHT greater than LEFT with filling of the vallecula. Recommend further evaluation with endoscopy. Narrowing of the posterior oropharynx and hypopharynx. Normal parapharyngeal fat. Normal submandibular glands. Parotid glands are normal. Normal glottis and subglottic airway. Prominent cervical lymph nodes bilaterally nonspecific but may be reactive. Paranasal sinuses and mastoid air cells are well aerated. Lung apices are well aerated. CT/CT neck w con* [id number] IMPRESSION: 1. Markedly enlarged [place] tonsils with significant narrowing of the oropha rynx. 2. Prominent enhancing soft tissue involving the lingual tonsils and tongue ba se with effacement of the RIGHT greater than LEFT vallecula. This is nonspecifi c and recommend endoscopy to exclude neoplasm. 3. Prominent cervical lymph nodes bilaterally may be reactive. 4. No other acute findings..
[2024-06-24] MEDS: iohexol 350 mg/mL 500 mL Btl (per mL) IV (12:40)
[2024-06-24 12:51] LABS: Blood Urea Nitrogen 38 mg/dL (8-23)
[2024-06-24 12:52] LABS: Glomerular Filtration Rate 38.2 mL/min (90-130)
== END 2024-06-24 12:03 | disposition home or self-care (01) ==
LOC: RAD 12:03
PROVIDERS: PCP Family Medicine; Visit Provider Specialist
DX: R13.10 Dysphagia, unspecified (principal); M54.2 Cervicalgia; Z85.850 Personal history of malignant neoplasm of thyroid; J35.1 Hypertrophy of tonsils; M79.9 Soft tissue disorder, unspecified; R59.0 Localized enlarged lymph nodes; R93.89 Abnormal findings on diagnostic imaging of other specified body structures
CPT/HCPCS: 70491; 82565; 84520